=== PATIENT | female | born 1980 | race Caucasian/White ===

== ENCOUNTER 2016-09-09 02:54 | Emergency (ER) | payer SELFPAY ==
[2016-09-09 03:34] VITALS: TEMP 98.2; BMI 24.2
[2016-09-09] MEDS ORDERED: HYDROmorphone 1 MG INJECTION IV ONE (03:45)
[2016-09-09] MEDS ORDERED: NS 1,000 ML IV ONE (03:45)
[2016-09-09] MEDS ORDERED: ONDANSETRON HCL 4 MG/2 ML VIAL IV ONE (03:45)
--- NOTE | 2016-09-09 03:47 | EDPRACDOC ---
- General Information Chief Complaint: Female Urogenital Problems Stated Complaint: BACK PAIN & VOMITING Time Seen by Provider: 09/09/16 03:41 Mode Of Arrival: Car Home Medications: Home Medications Dicyclomine HCl [Bentyl] 20 mg PO Q6H #20 tab 02/14/16 Ondansetron HCl [Zofran] 4 mg PO Q6H PRN #15 tab 02/14/16 Ketorolac Tromethamine [Toradol] 10 mg PO Q6H PRN #20 tab 09/09/16 Ondansetron [Zofran Odt] 4 mg PO Q6H PRN #20 tab.rapdis 09/09/16 Allergies/Adverse Reactions: Allergies Allergy/AdvReac Type Severity Reaction Status Date / Time codeine Allergy Nausea only Verified 02/13/16 23:32 [email or web address] Allergy See Verified 02/13/16 23:32 Comments - History of Present Illness Onset: [employer] HPI: PATIENT PRESENTS C/O LEFT FLANK PAIN AND NAUSEA SINCE THIS AFTERNOON. NO FEVER. DENIES PRIOR KIDNEY STONE. NOTES DIFFICULTY URINATING Pain Began: Reports: Spontaneous Pain Location: Reports: Flank (LEFT) Pain Severity: Moderate Pain Quality: Reports: Sharp, Stabbing : No Oral Intake: Normal Urinary Output: Normal Associated Signs and Symptoms: Reports: Dysuria, Nausea ED Past Medical History - History Reviewed Yes Nurses notes reviewed and agree except as marked Travel Outside of [place] in the Last 3 Months?: No - Patient Medical History Surgical History: Reports: Other (BTL) - Social Medical History Smoking Status: Never smoker ETOH: None Substance Abuse: None Lives With: Family Lives In: Home EDM Review of Systems - Review of Systems ROS Negative Except as Marked: Yes All systems reviewed and were negative except as marked Constitutional: No Symptoms Reported. negative: Fever, Chills, Weakness, Fatigue, Loss of Appetite Eyes: No Symptoms Reported. negative: Redness, Blurred Vision, Double Vision, Discharge, Pain, Light Sensitive, Photophobia Ears: No Symptoms Reported. negative: Pain, Hearing Loss, Drainage, Ear Pulling Throat: No Symptoms Reported. negative: Pain, Swelling Nose: No Symptoms Reported. negative: Congestion, Bleeding, Discharge, Injection, Swelling, Deformity, Ecchymosis, Tender, Abrasion, Laceration Mouth: No Symptoms Reported. negative: Pain, Drooling Respiratory: No Symptoms Reported. negative: Cough, Brassy Cough, Barky Cough, Shortness of Breath, Wheezing, Hemoptysis Cardiovascular: No Symptoms Reported. negative: Chest Pain, Palpitations, Syncope, Edema, Orthopnea, PND, Skin Mottling, Cyanosis Gastrointestinal: No Symptoms Reported. negative: Pain, Constipation, Nausea, Vomiting, Diarrhea, Melena, Formula Intolerance Genitourinary: Dysuria. negative: Bleeding, Discharge, Frequency, Hematuria, , Testicular Pain Neurological: No Symptoms Reported. negative: Headache, Dizziness, Seizure, Numbness, Weakness, Speech Difficulty, Gait Difficulty Musculoskeletal: No Symptoms Reported. negative: Neck, Chestwall, Ribs, Back, Shoulder, Arm, Elbow, Forearm, Wrist, Hand, Pelvis, Hip, Femur, Knee, Leg, Ankle , Foot Integumentary: No Symptoms Reported. negative: Itching, Rash, Bruising, Wound Allergic/Immunologic: No Symptoms Reported. negative: Hives, Itching Hematologic: No Symptoms Reported. negative: Lymphadenopathy, Easy Bruising, Easy Bleeding Endocrine: No Symptoms Reported. negative: Weight Gain, Weight Loss Psychiatric: No Symptoms Reported. negative: Anxiety, Depression, Hallucinations, Insomnia, Suicidal - Physical Exam Constitutional: Alert (Awake), Distress (MODERATE) Oriented to: Time, Person, Place Last recorded Vital Signs: Last Vital Signs Temp 98.2 F 09/09/16 03:29 Pulse 59 L 09/09/16 03:29 Resp 20 09/09/16 03:29 BP 152/99 09/09/16 03:29 Pulse Ox 99 09/09/16 03:29 Oxygen Pulse Oxygen Saturation 99 O2 Device Room Air Oxygen Flow Rate Fraction of Inspired Oxygen ( FIO2) - HEENT Head: Normal ( normocephalic) Eye Exam: Normal (PERRL, EOMI, Sclera white) Oropharynx: Normal (Pharynx:Moist without exudate,Gums-no swelling) Tympanic Membrane: Normal ENT EAC: Normal TMJ: Normal Nose: No Symptoms Reported (septum midline) Neck: Normal (FROM, trachea at midline) - Respiratory/Cardiovascular Respiratory: Normal - CTA (BBS clear to auscultation without adventitious sounds ) Cardiovascular: Normal (RRR without murmur, gallop or rub) - GI Auscultation: Normal (NABS) Palpation: Normal (Soft,No rebound or guarding, non distended) Tenderness: Non tender Gutierrez's Sign: Negative - Musculoskeletal Back: Normal (Non-Tender) Extremities: Normal (Normal tone, Pulses 2+ No cyanosis or edema, FROM) - Integumentary Skin: Normal, Warm, Dry Lymphatics: Normal (no adenopathy) - Neurologic Memory Impaired: Normal Motor Function: Normal (Normal tone, Pulses 2+ No cyanosis or edema, FROM) Cranial Nerve: Normal (CN II-X11 intact sensation, strength 5/5) Cerebellar: Normal Mood Description: Normal Perception: Normal - Results 09/09/16 04:10 09/09/16 04:10 Decision Time to Discharge: 05:32 - Departure Yes I personally saw and evaluated the patient. Disposition: Home Condition: Good Final Diagnosis: Kidney stone Instructions: Kidney Stones (ED) Education/Counseling Given To: Patient Education/Counseling Given Regarding: Diagnosis, Treatment, Prognosis, Follow Up Referrals: None,No Provider [Primary Care Provider] - One Week Jovany Alfaro MD [Staff Physician] - One Week Prescriptions: Ketorolac Tromethamine [Toradol] 10 mg PO Q6H PRN #20 tab PRN Reason: Pain Ondansetron [Zofran Odt] 4 mg PO Q6H PRN #20 tab.rapdis PRN Reason: Nausea/Vomiting
[2016-09-09 04:30] LABS: AUTOMATED BASOPHIL 0.3 % (0-2); AUTOMATED EOSINOPHIL 0.3 % (0-5); AUTOMATED MONOCYTE 4.3 % (3-10); AUTOMATED NEUTROPHIL 88.1 % (45-76); MPV 8.1 fL (7.4-10.4)
[2016-09-09 04:37] LABS: RBC/URINE TNTC (0-5)
[2016-09-09 04:38] LABS: BLOOD UREA NITROGEN 16 MG/DL (7-17); CALCIUM 9.3 MG/DL (8.4-10.2); CALCULATED OSMOLALITY 271 MOs/Kg (270-290); CHLORIDE 103 mEq/L (98-107); GLUCOSE 132 MG/DL (70-99); SODIUM LEVEL 139 mEq/L (137-146)
[2016-09-09 04:50] LABS: LEUKOCYTES/URINE NEG (NEGATIVE); URINE OCCULT BLOOD 1+ (NEG/TRACE)
[2016-09-09 04:51] LABS: NITRITE/URINE NEG (NEGATIVE)
--- NOTE | 2016-09-09 05:24 | DIRPT ---
CLINICAL DATA: 36-year-old female with left flank pain. EXAM: CT ABDOMEN AND PELVIS WITHOUT CONTRAST TECHNIQUE: Multidetector CT imaging of the abdomen and pelvis was performed following the standard protocol without IV contrast. COMPARISON: CT dated 02/14/2016 FINDINGS: The visualized lung bases are clear. No intra-abdominal free air or free fluid. The liver, gallbladder, pancreas, spleen, and adrenal glands appear unremarkable. Small (2-3 mm) nonobstructing bilateral renal calculi noted in the interpolar aspect of the right kidney as well as left renal inter pole and lower pole. There is no hydronephrosis on the right. There is mild pelviectasis of the left kidney. There is mild haziness of the left perinephric and periureteric fat. A 2 mm stone is noted along the posterior wall of the urinary bladder likely representing a recently passed left renal calculus. The uterus is anteverted and appears unremarkable. The ovaries are grossly unremarkable. Tubal ligation clips noted within the pelvis. There is no evidence of bowel obstruction or inflammation. Normal appendix. The abdominal aorta and IVC appear grossly unremarkable on this noncontrast study. No portal venous gas identified. There is no adenopathy. Small fat containing umbilical hernia. The osseous structures appear intact. IMPRESSION: A 2 mm stone within the posterior bladder likely representing a recently passed left renal calculus. Small nonobstructing bilateral renal calculi. No hydronephrosis. Electronically Signed By: Kang Santos M.D. On: 09/09/2016 05:21
[2016-09-09 06:02] VITALS: BP 103/54; PULSE 81
== END 2016-09-09 05:56 | disposition home or self-care (01) ==
LOC: ED 02:54
DX: N20.0 Calculus of kidney (principal)
CPT/HCPCS: 36415; 74176; 80048; 81001; 81025; 85025; 96361; 96374; 96375; 99284; J1170; J2405